=== PATIENT | male | born 1955 | race Caucasian/White ===

== ENCOUNTER 2017-10-28 11:35 | Inpatient (IN) | payer BC, OTHER ==
[~2017-10-28] VITALS: Ht 182.9 cm; Wt 95.1 kg
--- NOTE | ~2017-10-28 | P ---
[facility] [place] [address] PROCEDURE REPORT Name: JAYLEEN LOCKWOOD Room #: 214-P ADM IN M.R.#: [id number] Admission: 10/28/17 Attend Phys: Boris Brunson MD, Discharge: Date of : 55 Report #: [id number] THIS REPORT FOR: //name// CC: Boris Veras DATE OF SERVICE: 10/28/2017 PREOPERATIVE DIAGNOSIS: Sick sinus syndrome. POSTOPERATIVE DIAGNOSIS: Sick sinus syndrome. HISTORY OF PRESENT ILLNESS: The patient is a 62-year-old with recent presyncopal symptoms, who wore a surveillance monitor, which shows frequent episodes of symptomatic bradycardia with heart rates in the 30s as well as sinus arrest with longest pause lasting 7 seconds. He is here for a dual chamber pacemaker insertion. ANESTHESIA: The patient underwent MAC anesthesia with no anesthesia related complications. PROCEDURE IN DETAIL: The patient underwent informed consent. We discussed the details of the procedure including the risks, which include but not limited to bleeding, infection, vascular damage, cardiac perforation and pneumothorax. He understood these risks and is willing to proceed. The patient was brought to the EP Laboratory in a fasting and sedated state, prepped and draped in a sterile fashion, received IV Ancef for antibiotic prophylaxis, underwent a venogram showing patency of the left axillary vein. Next, lidocaine was injected below the level of the left clavicle. Incision was made. Pocket was created over the prepectoral fascia and access was obtained twice in the left axillary vein using the extrathoracic approach with sheath positioned using the modified Seldinger technique. The RV lead was positioned in the right ventricular apex. At this site, the R waves were low and appeared to get lower. Therefore, I repositioned the lead and R waves were much better. Next, an atrial lead was positioned in the right atrial appendage with adequate pacing and sensing thresholds. Both leads were sutured to the prepectoral fascia and then connected to the pacemaker. Pacemaker was placed in the pocket and the pocket was irrigated with vancomycin. The pocket was closed in 3 layers and surgical glue was placed to the skin layer. The patient underwent implantation of a [employer] MRI compatible pacemaker, model number [id number], serial number [id number]. His indication for MRI compatible device was a known history of neurologic issues and follows with the neurologist. His atrial lead was a [employer], model number [id number], 52 cm, serial number [id number] with a P-wave of 1.3 millivolts, pacing impedance of 550 ohms, and pacing threshold 1.25 volts at 0.4 milliseconds. The RV lead was a [employer], model number [id number], 58 cm, serial number [id number] with an R-wave of 10.[address] [address] PROCEDURE REPORT Name: JAYLEEN LOCKWOOD Room #: 214-P ADM IN M.R.#: [id number] Admission: 10/28/17 Attend Phys: Boris Brunson MD, Discharge: Date of : 55 Report #: [id number] millivolts, pacing impedance of 550 ohms, and a pacing threshold of 0.75 volts at 0.4 milliseconds. The device was programmed to the DDDR 60-130 mode. CONCLUSIONS: 1. Successful dual-chamber pacemaker implantation. 2. Satisfactory atrial and ventricular pacing and sensing thresholds. By: [id number] Carroll Gonzalez MD /nt
--- NOTE | ~2017-10-28 | D ---
[facility] [place] [address] DISCHARGE SUMMARY Name: JAYLEEN LOCKWOOD Room #: 214-P [facility] IN M.R.#: [id number] Admission: 10/28/17 Attend Phys: Boris Brunson MD, Discharge: 10/29/17 Date of : 55 Report #: [id number] THIS REPORT FOR: //name// CC: Boris Veras MD DATE OF SERVICE: 10/29/2017 HOSPITAL COURSE: The patient is a 62-year-old male who was having some near syncopal events. We had placed a monitor on him, which found 5-7 second pauses. Subsequently, was brought back up to this clinic and admitted to [facility] yesterday. Dr. Gonzalez of the electrophysiology service placed a [employer] dual chamber pacemaker. This was placed without any complications. There is no evidence on interrogation this morning of any atrial tachycardia, atrial fib, VT or VF. Appropriate sensing and thresholds were noted. His site looks clean. He voices minimal complaints. He has been instructed for post-pacemaker limitations and restrictions. He will restart his home medications of amlodipine 5, atorvastatin 40, fish oil, Microzide 12.5, Mobic p.r.n., metformin 1000 b.i.d., Prilosec 20, Valsartan 320, primidone 50 b.i.d., vitamin D3. DISCHARGE DIAGNOSES: 1. Sick sinus syndrome with intermittent high degree heart block, successful permanent pacemaker placement, dual chamber. 2. Hypertension. 3. Hypercholesterolemia. 4. Diabetes. Limitations as instructed by Dr. Gonzalez, EP service. They will see him in 7-10 days for wound check and device interrogation. I will see him in 3 months. We will consider stress testing based on his multiple risk factors. We would have to be pharmacologic now that he is paced. We will arrange that as an outpatient and follow up with Dr. Veras as scheduled. Thank you for asking me to assist in the care of this patient. By: [id number] Boris Brunson MD, FACC /nt
--- NOTE | ~2017-10-28 | HC ---
[facility] [place] [address] CONSULTATION Name: JAYLEEN LOCKWOOD Room #: 214-P ADM IN M.R.#: [id number] Admission: 10/28/17 Attend Phys: Boris Brunson MD, Discharge: Date of : 55 Report #: [id number] THIS REPORT FOR: //name// CC: Boris Veras DATE OF SERVICE: 10/28/2017 REASON FOR CONSULTATION: Presyncope and sick sinus syndrome. HISTORY OF PRESENT ILLNESS: The patient is a 62-year-old male who has been recently experiencing presyncopal symptoms. To further work this up, he had a radiographer cardiac catheterization placed by his primary care physician and he came in to see Dr. Brunson for evaluation of this. This shows frequent episodes of sinus bradycardia down into the 30s and 20s. These occurred during waking hours. He has also had a 7-second pause noted. On telemetry while I was evaluating him, he did have a heart rate in the 60s and then laxmi down into the 30s. He denies any chest pain or chest tightness. He denies PND or orthopnea. He denies jaydon syncope. REVIEW OF SYSTEMS: A 12-point review of systems was performed and was negative other than what I mentioned above. PAST MEDICAL HISTORY: 1. Hypertension. 2. Hyperlipidemia. 3. Diabetes. 4. Obstructive sleep apnea. 5. Essential tremor. SOCIAL HISTORY: He does not smoke. FAMILY HISTORY: Noncontributory. ALLERGIES: None. CURRENT MEDICATIONS: Include amlodipine, Lipitor, fish oil, hydrochlorothiazide, Mobic, metformin, omeprazole, Mysoline, valsartan and vitamin D3. PHYSICAL EXAMINATION: VITAL SIGNS: Blood pressure is stable. Heart rates as described above. GENERAL: He is in no acute distress. Alert, oriented x 3. HEENT: His sclerae are anicteric. His oropharynx is clear. NECK: Supple, with no thyromegaly or carotid bruits. HEART: Regular rate and rhythm with some ectopy noted, but no murmurs, rubs, [facility] [address] [place] [address] CONSULTATION Name: JAYLEEN LOCKWOOD Room #: 214-P ADM IN M.R.#: [id number] Admission: 10/28/17 Attend Phys: Boris Brunson MD, Discharge: Date of : 55 Report #: [id number] gallops. He does not have elevated JVD. LUNGS: Clear to auscultation bilaterally. ABDOMEN: Soft, nontender, nondistended with no hepatosplenomegaly. EXTREMITIES: There is no clubbing, cyanosis or edema. NEUROLOGIC: Cranial nerves 2-12 are intact. LABORATORY DATA: His 12-lead EKG today shows sinus rhythm with bigeminal PVCs and her left bundle branch block and negative in leads II, III and aVF. An echocardiogram was performed today showing EF of 60%-65% with no significant valvular abnormalities. His labs show hemoglobin of 15, white count 6, platelets 162. Coags: INR 1.1. Chemistry: Sodium 140, potassium 3.7, BUN 18, creatinine 1.2, glucose 152. INR 1.1. IMPRESSION: 1. Sick sinus syndrome. 2. Symptomatic bradycardia. 3. Sinus arrest. 4. Presyncopal symptoms. 5. Diabetes. 6. Hypertension. 7. Hyperlipidemia. In summary, the patient has evidence of sick sinus syndrome with frequent episodes of symptomatic bradycardia as well as sinus arrest documented on a recent radiographer cardiac catheterization. He is not on any AV jalen blocking agents. Based on these findings, the patient meets criteria for dual chamber pacemaker implantation. We have discussed the details of the procedure including the risks, which include but not limited to bleeding, infection, vascular damage, cardiac perforation and pneumothorax. He understands these risks and is willing to proceed. By: [id number] Carroll Gonzalez MD /nt
[2017-10-28 12:05] VITALS: BP 135/91
[2017-10-28 12:20] LABS: ABSOLUTE NEUTROPHILS 4.4 thou/uL (1.4-8.2); BASOPHILS 1.1 % (0.0-2.0); EOSINOPHILS 2.7 % (0.0-3.0); HEMATOCRIT 44.4 % (42.0-52.0); HEMOGLOBIN 15.6 gm/dL (14.0-18.0); LYMPHOCYTES 17.6 % (24.0-44.0); MCH 30.6 pg (26.0-34.0); MCHC 35.2 g/dL (28.0-37.0); MCV 86.9 fL (80.0-100.0); MONOCYTES 6.4 % (1.0-8.0); PLATELET COUNT 162 thou/uL (150-400); POLYS 72.2 % (36.0-66.0); RBC 5.11 mil/uL (4.50-6.00); RDW 13.7 % (10.5-14.5); WBC 6.2 thou/uL (4.0-11.0)
[2017-10-28 12:28] LABS: CALCIUM 9.2 mg/dL (8.5-10.1); CREATININE 1.2 mg/dL (0.7-1.3); POTASSIUM 3.7 mmol/L (3.5-5.1)
[2017-10-28 12:32] LABS: INR 1.1; PROTIME 10.9 Seconds (9.3-11.4)
[2017-10-28 16:51] VITALS: BP 136/92
[2017-10-28 17:15] VITALS: BP 150/93
[2017-10-28 17:30] VITALS: BP 152/94
[2017-10-28 18:00] VITALS: BP 142/93
[2017-10-28 19:31] VITALS: BP 141/94
[2017-10-29 04:04] VITALS: BP 146/94
[2017-10-29] MEDS ORDERED: MYSOLINE50 MG PO (07:11)
[2017-10-29] MEDS ORDERED: OMEPRAZOLE20 M2 PO (07:11)
[2017-10-29] MEDS ORDERED: ATORVASTATIN CA40 MG PO (07:11)
[2017-10-29] MEDS ORDERED: DIOVAN320 MG PO (07:11)
[2017-10-29] MEDS ORDERED: HYDROCHLOROTH12.5 M1 PO (07:11)
[2017-10-29] MEDS ORDERED: METFORMIN HCL500 MG PO (07:11)
[2017-10-29] MEDS ORDERED: NORVASC5 MG PO (07:11)
[2017-10-29 07:30] VITALS: BP 144/86
[2017-10-29 09:34] VITALS: BP 144/86
== END 2017-10-29 12:17 | disposition home or self-care (01) | DRG 244 ==
LOC: 2N 11:35
PROVIDERS: Internal Medicine Cardiovascular Disease
PROC: 02HK3JZ Insertion of Pacemaker Lead into Right Ventricle, Percutaneous Approach (ICD-10-PCS; principal; 2017-10-28)
PROC: 0JH606Z Insertion of Pacemaker, Dual Chamber into Chest Subcutaneous Tissue and Fascia, Open Approach (ICD-10-PCS; principal; 2017-10-28)
PROC: 02H63JZ Insertion of Pacemaker Lead into Right Atrium, Percutaneous Approach (ICD-10-PCS; principal; 2017-10-28)
DX: I49.5 Sick sinus syndrome (principal); I10 Essential (primary) hypertension; E78.5 Hyperlipidemia, unspecified; E11.9 Type 2 diabetes mellitus without complications; G47.33 Obstructive sleep apnea (adult) (pediatric); I45.5 Other specified heart block; E78.00 Pure hypercholesterolemia, unspecified; Z79.899 Other long term (current) drug therapy
CPT/HCPCS: 10081; 62110; 62900; 70005

== ENCOUNTER → 2020-02-21 | Outpatient (CLI) | payer OTHER ==
[~2020-02-21] MED LIST: ATORVASTATIN CA40 MG PO; DIOVAN320 MG PO; HYDROCHLOROTH12.5 M1 PO; METFORMIN HCL500 MG PO; MYSOLINE50 MG PO; NORVASC5 MG PO; OMEPRAZOLE20 M2 PO
== END ==
LOC: SJCVCIMAG 09:34
PROVIDERS: ATTEND Internal Medicine Cardiovascular Disease
DX: I35.8 Other nonrheumatic aortic valve disorders (principal); I49.5 Sick sinus syndrome; I10 Essential (primary) hypertension; E78.00 Pure hypercholesterolemia, unspecified; E11.9 Type 2 diabetes mellitus without complications; Z95.0 Presence of cardiac pacemaker; Z79.899 Other long term (current) drug therapy

== ENCOUNTER → 2020-11-24 | Outpatient (CLI) | payer OTHER | LOC: SJCVCIMAG 08:16 | PROVIDERS: ATTEND Internal Medicine Cardiovascular Disease | DX: I49.3 Ventricular premature depolarization (principal); I34.0 Nonrheumatic mitral (valve) insufficiency; I10 Essential (primary) hypertension; E78.5 Hyperlipidemia, unspecified; E11.9 Type 2 diabetes mellitus without complications; R53.83 Other fatigue; R06.00 Dyspnea, unspecified; Z95.2 Presence of prosthetic heart valve ==